=== PATIENT | male | born 1990 | race Caucasian/White ===

== ENCOUNTER 2016-07-07 00:56 | Emergency (ER) | payer SELFPAY ==
[2016-07-07] MEDS ORDERED: IBUPROFEN 600 MG TABLET ONE (01:57)
[2016-07-07] MEDS ORDERED: AMOX 875 MG/CLAV 125 MG 1 EACH TABLET ONE (01:57)
== END 2016-07-07 02:08 | disposition home or self-care (01) ==
LOC: ED 00:56
DX: G43.909 Migraine, unspecified, not intractable, without status migrainosus (principal); J32.0 Chronic maxillary sinusitis; K08.89 Other specified disorders of teeth and supporting structures; M99.01 Segmental and somatic dysfunction of cervical region
CPT/HCPCS: 99283 ×2; A9270 ×2